=== PATIENT | female | born 1955 | race Caucasian/White ===

== ENCOUNTER → 2016-06-05 | Outpatient (CLI) | payer MEDICARE, OTHER ==
[~2016-06-05] VITALS: Ht 152.4 cm; Wt 129.3 kg
[~2016-06-05] MED LIST: ALBUTEROL2.5 MG/3 M INH; ALL DAY ALLERGY10 MG PO; AMITIZA24 MCG PO; BREO ELLIPTA 11 EACH INH; BUMEX 1MG TABLET1 MG PO; CEFDINIR300 MG PO; CLINDAMYCIN HC300 MG PO; COLACE100 MG PO; DALIRESP500 MCG PO; EPIPEN 2-P0.3 MG/0.3 SC; FEOSOL325 MG PO; HUMALOG100 UNIT/3 SC; IMDUR ER TAB 3030 MG PO; LANTUS SOL100 UNIT/1 SC; LASIX 40 MG TAB40 MG PO; LASIX80 MG PO; LEVEMIR100 UNIT/1 SC; METOLAZONE5 MG PO; MONTELUKAST SOD10 MG PO; NEURONTIN 400400 MG PO; NYSTATIN15 GM TOP; OXYCODONE HCL15 MG PO; POTASSIUM CHLO20 ME1 PO; PRAVASTATIN SOD20 MG PO; PREDNISONE10 MG PO; PROAIR HFA8.5 GM INH; PROTONIX40 MG PO; QUALAQUIN324 MG PO; ROCEPHIN 2 GM AD2 GM IM; SPIRIVA18 MCG INH; TANZEUM30 MG/0.5 SC; TRIAMCINOLONE A60 M1 TOP; VITAMIN B-1000 MCG/M IM; VITAMIN D2000 UNI1 PO; VOLTAREN100 GM TOP
== END ==
LOC: OPSV 14:20
DX: L03.116 Cellulitis of left lower limb (principal); L03.115 Cellulitis of right lower limb
CPT/HCPCS: 96372; J1335

== ENCOUNTER → 2016-06-06 | Outpatient (CLI) | payer MEDICARE, OTHER ==
[~2016-06-06] VITALS: Ht 152.4 cm; Wt 129.3 kg
== END ==
LOC: OPSV 08:59
DX: L03.116 Cellulitis of left lower limb (principal); L03.115 Cellulitis of right lower limb
CPT/HCPCS: 96372; J1335

== ENCOUNTER → 2016-06-07 | Outpatient (CLI) | payer MEDICARE, OTHER | LOC: OPSV 09:06 | DX: L03.116 Cellulitis of left lower limb (principal); L03.115 Cellulitis of right lower limb | CPT/HCPCS: 96372; J1335 ==

== ENCOUNTER → 2016-06-08 | Outpatient (CLI) | payer MEDICARE, OTHER | LOC: OPSV 08:15 | DX: L03.116 Cellulitis of left lower limb (principal); L03.115 Cellulitis of right lower limb | CPT/HCPCS: 96372; J1335 ==

== ENCOUNTER 2016-06-12 14:48 | Inpatient (IN) | payer MEDICARE, OTHER ==
[~2016-06-12] VITALS: Ht 165.1 cm; Wt 128.8 kg
[~2016-06-12 14:48] MED LIST changes: -ALBUTEROL2.5 MG/3 M INH; -ALL DAY ALLERGY10 MG PO; -AMITIZA24 MCG PO; -BREO ELLIPTA 11 EACH INH; -BUMEX 1MG TABLET1 MG PO; -CEFDINIR300 MG PO; -CLINDAMYCIN HC300 MG PO; -COLACE100 MG PO; -DALIRESP500 MCG PO; -EPIPEN 2-P0.3 MG/0.3 SC; -FEOSOL325 MG PO; -HUMALOG100 UNIT/3 SC; -IMDUR ER TAB 3030 MG PO; -LANTUS SOL100 UNIT/1 SC; -LASIX 40 MG TAB40 MG PO; -LASIX80 MG PO; -METOLAZONE5 MG PO; -MONTELUKAST SOD10 MG PO; -NEURONTIN 400400 MG PO; -NYSTATIN15 GM TOP; -OXYCODONE HCL15 MG PO; -POTASSIUM CHLO20 ME1 PO; -PRAVASTATIN SOD20 MG PO; -PREDNISONE10 MG PO; -PROAIR HFA8.5 GM INH; -PROTONIX40 MG PO; -QUALAQUIN324 MG PO; -ROCEPHIN 2 GM AD2 GM IM; -SPIRIVA18 MCG INH; -TANZEUM30 MG/0.5 SC; -TRIAMCINOLONE A60 M1 TOP; -VITAMIN B-1000 MCG/M IM; -VITAMIN D2000 UNI1 PO; -VOLTAREN100 GM TOP
[2016-06-12] MEDS ORDERED: BREO ELLIPTA 11 EACH INH (17:45)
[2016-06-12] MEDS ORDERED: PROAIR HFA8.5 GM INH (17:46)
[2016-06-12] MEDS ORDERED: ALBUTEROL2.5 MG/3 M INH (17:48)
[2016-06-12] MEDS ORDERED: DALIRESP500 MCG PO (17:49)
[2016-06-12] MEDS ORDERED: IMDUR ER TAB 3030 MG PO (17:50)
[2016-06-12] MEDS ORDERED: LASIX 40 MG TAB40 MG PO (17:50)
[2016-06-12] MEDS ORDERED: PRAVASTATIN SOD20 MG PO (17:51)
[2016-06-12] MEDS ORDERED: LANTUS SOL100 UNIT/1 SC (17:54)
[2016-06-12] MEDS ORDERED: TANZEUM30 MG/0.5 SC (17:55)
[2016-06-12] MEDS ORDERED: OXYCODONE HCL15 MG PO (17:56)
[2016-06-12] MEDS ORDERED: VOLTAREN100 GM TOP (17:58)
[2016-06-12] MEDS ORDERED: ALL DAY ALLERGY10 MG PO (17:59)
[2016-06-12] MEDS ORDERED: NEURONTIN 400400 MG PO (17:59)
[2016-06-12] MEDS ORDERED: MONTELUKAST SOD10 MG PO (17:59)
[2016-06-12] MEDS ORDERED: QUALAQUIN324 MG PO (18:00)
[2016-06-12] MEDS ORDERED: PROTONIX40 MG PO (18:01)
[2016-06-12 18:02] LABS: RED BLOOD COUNT 2.59 M/UL (4.00-5.10); WHITE BLOOD COUNT 14.5 K/UL (4.5-11.0)
[2016-06-12] MEDS ORDERED: AMITIZA24 MCG PO (18:02)
[2016-06-12] MEDS ORDERED: TRIAMCINOLONE A60 M1 TOP (18:03)
[2016-06-12] MEDS ORDERED: EPIPEN 2-P0.3 MG/0.3 SC (18:05)
[2016-06-12] MEDS ORDERED: VITAMIN B-1000 MCG/M IM (18:05)
[2016-06-12] MEDS ORDERED: VITAMIN D2000 UNI1 PO (18:06)
[2016-06-12] MEDS ORDERED: FEOSOL325 MG PO (18:07)
[2016-06-14 07:01] LABS: HEMOGLOBIN 10.1 gm/dl (12.3-15.3); RED BLOOD COUNT 3.67 M/UL (4.00-5.10); WHITE BLOOD COUNT 8.5 K/UL (4.5-11.0)
[2016-06-15 05:41] LABS: HEMOGLOBIN 10.1 gm/dl (12.3-15.3); RED BLOOD COUNT 3.61 M/UL (4.00-5.10)
[2016-06-15 05:42] LABS: WHITE BLOOD COUNT 13.8 K/UL (4.5-11.0)
[2016-06-16 05:39] LABS: HEMOGLOBIN 10.4 gm/dl (12.3-15.3); RED BLOOD COUNT 3.78 M/UL (4.00-5.10); WHITE BLOOD COUNT 11.2 K/UL (4.5-11.0)
[2016-06-18 06:25] LABS: HEMOGLOBIN 11.1 gm/dl (12.3-15.3); RED BLOOD COUNT 4.02 M/UL (4.00-5.10); WHITE BLOOD COUNT 9.9 K/UL (4.5-11.0)
[2016-06-18] MEDS ORDERED: COLACE100 MG PO (15:13)
[2016-06-18] MEDS ORDERED: ROCEPHIN 2 GM AD2 GM IM (15:14)
[2016-12-12] MEDS ORDERED: METOLAZONE5 MG PO (01:36)
[2016-12-13] MEDS ORDERED: NEURONTIN 400400 MG PO (11:47)
[2016-12-13] MEDS ORDERED: HUMALOG100 UNIT/3 SC (17:53)
[2016-12-17] MEDS ORDERED: CEFDINIR300 MG PO (10:33)
[2016-12-17] MEDS ORDERED: PREDNISONE10 MG PO (10:52)
== END 2016-06-18 16:19 | disposition home or self-care (01) | DRG 603 ==
LOC: MED SURG 4 14:48
PROVIDERS: Family Medicine; ADMIT Emergency Medicine
DX: L03.115 Cellulitis of right lower limb (principal); J96.11 Chronic respiratory failure with hypoxia; I13.0 Hypertensive heart and chronic kidney disease with heart failure and stage 1 through stage 4 chronic kidney disease, or unspecified chronic kidney disease; N18.4 Chronic kidney disease, stage 4 (severe); I50.32 Chronic diastolic (congestive) heart failure; J44.1 Chronic obstructive pulmonary disease with (acute) exacerbation; L03.116 Cellulitis of left lower limb; E11.65 Type 2 diabetes mellitus with hyperglycemia; E11.22 Type 2 diabetes mellitus with diabetic chronic kidney disease; E11.628 Type 2 diabetes mellitus with other skin complications; E78.5 Hyperlipidemia, unspecified; M54.5 Low back pain; G89.29 Other chronic pain; F41.9 Anxiety disorder, unspecified; K21.9 Gastro-esophageal reflux disease without esophagitis; M51.36 Other intervertebral disc degeneration, lumbar region; M50.30 Other cervical disc degeneration, unspecified cervical region; Z87.891 Personal history of nicotine dependence; Z82.49 Family history of ischemic heart disease and other diseases of the circulatory system; Z83.3 Family history of diabetes mellitus; Z83.6 Family history of other diseases of the respiratory system; Z82.3 Family history of stroke; Z82.61 Family history of arthritis; Z79.899 Other long term (current) drug therapy; Z79.4 Long term (current) use of insulin; Z88.6 Allergy status to analgesic agent; Z88.8 Allergy status to other drugs, medicaments and biological substances; D63.8 Anemia in other chronic diseases classified elsewhere; I87.8 Other specified disorders of veins; D72.829 Elevated white blood cell count, unspecified; E87.6 Hypokalemia
CPT/HCPCS: 36415; 71010; 80048; 80053; 80202; 82272; 82728; 82962; 83540; 83550; 84132; 85025; 85027; 86850; 86900; 86901; 86920; 87040; 93970; 94640; 94664; 96372; J0696; J1335; J1650; J1940; J2920; J2930; J3370; J7050; J7070; P9016

== ENCOUNTER → 2016-06-20 | Outpatient (CLI) | payer MEDICARE, OTHER ==
[~2016-06-20] VITALS: Ht 165.1 cm; Wt 128.8 kg
[~2016-06-20] MED LIST changes: +ALBUTEROL2.5 MG/3 M INH; +ALL DAY ALLERGY10 MG PO; +AMITIZA24 MCG PO; +BREO ELLIPTA 11 EACH INH; +BUMEX 1MG TABLET1 MG PO; +CEFDINIR300 MG PO; +CLINDAMYCIN HC300 MG PO; +COLACE100 MG PO; +DALIRESP500 MCG PO; +EPIPEN 2-P0.3 MG/0.3 SC; +FEOSOL325 MG PO; +HUMALOG100 UNIT/3 SC; +IMDUR ER TAB 3030 MG PO; +LANTUS SOL100 UNIT/1 SC; +LASIX 40 MG TAB40 MG PO; +LASIX80 MG PO; +METOLAZONE5 MG PO; +MONTELUKAST SOD10 MG PO; +NEURONTIN 400400 MG PO; +NYSTATIN15 GM TOP; +OXYCODONE HCL15 MG PO; +POTASSIUM CHLO20 ME1 PO; +PRAVASTATIN SOD20 MG PO; +PREDNISONE10 MG PO; +PROAIR HFA8.5 GM INH; +PROTONIX40 MG PO; +QUALAQUIN324 MG PO; +ROCEPHIN 2 GM AD2 GM IM; +SPIRIVA18 MCG INH; +TANZEUM30 MG/0.5 SC; +TRIAMCINOLONE A60 M1 TOP; +VITAMIN B-1000 MCG/M IM; +VITAMIN D2000 UNI1 PO; +VOLTAREN100 GM TOP
== END ==
LOC: OPSV 14:00
DX: L03.90 Cellulitis, unspecified (principal)
CPT/HCPCS: 96372; J0696

== ENCOUNTER → 2016-06-21 | Outpatient (CLI) | payer MEDICARE, OTHER | LOC: OPSV 07:52 | DX: L03.90 Cellulitis, unspecified (principal) | CPT/HCPCS: 96372; J0696 ==

== ENCOUNTER 2016-06-25 16:43 | Inpatient (IN) | payer MEDICARE, OTHER ==
[~2016-06-25] VITALS: Ht 152.4 cm; Wt 128.5 kg
[~2016-06-25 16:43] MED LIST changes: -BUMEX 1MG TABLET1 MG PO; -CEFDINIR300 MG PO; -CLINDAMYCIN HC300 MG PO; -HUMALOG100 UNIT/3 SC; -LASIX80 MG PO; -METOLAZONE5 MG PO; -NYSTATIN15 GM TOP; -POTASSIUM CHLO20 ME1 PO; -PREDNISONE10 MG PO; -SPIRIVA18 MCG INH
[2016-06-25 19:03] LABS: HEMOGLOBIN 10.7 gm/dl (12.3-15.3); RED BLOOD COUNT 3.9 M/UL (4.00-5.10); WHITE BLOOD COUNT 9.7 K/UL (4.5-11.0)
[2016-06-26 05:41] LABS: HEMOGLOBIN 9.6 gm/dl (12.3-15.3); WHITE BLOOD COUNT 10.6 K/UL (4.5-11.0)
[2016-06-26 05:52] LABS: RED BLOOD COUNT 3.48 M/UL (4.00-5.10)
[2016-06-27 06:21] LABS: HEMOGLOBIN 9.2 gm/dl (12.3-15.3); RED BLOOD COUNT 3.4 M/UL (4.00-5.10); WHITE BLOOD COUNT 9.1 K/UL (4.5-11.0)
[2016-06-28 06:06] LABS: HEMOGLOBIN 9.1 gm/dl (12.3-15.3); RED BLOOD COUNT 3.33 M/UL (4.00-5.10); WHITE BLOOD COUNT 8.9 K/UL (4.5-11.0)
[2016-06-29 06:02] LABS: HEMOGLOBIN 8.3 gm/dl (12.3-15.3); RED BLOOD COUNT 3.04 M/UL (4.00-5.10); WHITE BLOOD COUNT 7.2 K/UL (4.5-11.0)
[2016-06-29 06:32] LABS: BUN/CREATININE RATIO 4 (0-10)
[2016-06-30 04:42] LABS: HEMOGLOBIN 8.5 gm/dl (12.3-15.3); RED BLOOD COUNT 3.13 M/UL (4.00-5.10); WHITE BLOOD COUNT 8.3 K/UL (4.5-11.0)
--- NOTE | 2016-07-01 18:05 | NUR ---
CURRENTLY THE PATIENT IS SITTING UP IN THE CHAIR WITH HER LEGS ELEVATED ON THE OTTOMAN. IV PATENT AND HEP LOCKED. CALL LIGHT WITH IN REACH. WILL CONTINUE TO MONITOR.
[2016-07-02] MEDS ORDERED: CLINDAMYCIN HC300 MG PO (09:59)
[2016-07-02] MEDS ORDERED: BUMEX 1MG TABLET1 MG PO (10:00)
[2016-07-02] MEDS ORDERED: NYSTATIN15 GM TOP (10:06)
[2016-12-12] MEDS ORDERED: METOLAZONE5 MG PO (01:36)
[2016-12-13] MEDS ORDERED: NEURONTIN 400400 MG PO (11:47)
[2016-12-13] MEDS ORDERED: HUMALOG100 UNIT/3 SC (17:53)
[2016-12-17] MEDS ORDERED: CEFDINIR300 MG PO (10:33)
[2016-12-17] MEDS ORDERED: PREDNISONE10 MG PO (10:52)
== END 2016-07-02 17:35 | disposition home or self-care (01) | DRG 602 ==
LOC: MED SURG 4 16:43
PROVIDERS: Family Medicine; Internal Medicine Nephrology; ADMIT Emergency Medicine
DX: L03.116 Cellulitis of left lower limb (principal); J96.21 Acute and chronic respiratory failure with hypoxia; N18.4 Chronic kidney disease, stage 4 (severe); J44.1 Chronic obstructive pulmonary disease with (acute) exacerbation; L03.115 Cellulitis of right lower limb; R60.1 Generalized edema; I12.9 Hypertensive chronic kidney disease with stage 1 through stage 4 chronic kidney disease, or unspecified chronic kidney disease; E11.22 Type 2 diabetes mellitus with diabetic chronic kidney disease; Z87.891 Personal history of nicotine dependence; E78.5 Hyperlipidemia, unspecified; M46.92 Unspecified inflammatory spondylopathy, cervical region; M46.96 Unspecified inflammatory spondylopathy, lumbar region; Z88.6 Allergy status to analgesic agent; Z88.8 Allergy status to other drugs, medicaments and biological substances; I87.8 Other specified disorders of veins; E87.6 Hypokalemia; T50.2X5A Adverse effect of carbonic-anhydrase inhibitors, benzothiadiazides and other diuretics, initial encounter; E83.42 Hypomagnesemia; E11.649 Type 2 diabetes mellitus with hypoglycemia without coma; D63.1 Anemia in chronic kidney disease; Z79.4 Long term (current) use of insulin; Z79.891 Long term (current) use of opiate analgesic; Z79.51 Long term (current) use of inhaled steroids; Z79.899 Other long term (current) drug therapy
CPT/HCPCS: 36415; 36600; 71010; 80048; 80053; 82043; 82550; 82553; 82570; 82728; 82803; 82962; 83540; 83550; 83735; 84484; 85025; 85027; 87081; 93005; 94640; 94660; 94664; 96372; J0696; J1650; J1940; J2405; J7030; Q4081

== ENCOUNTER 2016-08-14 10:10 | Inpatient (IN) | payer MEDICARE, OTHER ==
[~2016-08-14] VITALS: Ht 152.4 cm; Wt 134.9 kg
[~2016-08-14 10:10] MED LIST changes: +BUMEX 1MG TABLET1 MG PO; +CLINDAMYCIN HC300 MG PO; +NYSTATIN15 GM TOP
[2016-08-14 14:05] LABS: HEMOGLOBIN 8.4 gm/dl (12.3-15.3); RED BLOOD COUNT 3.14 M/UL (4.00-5.10)
[2016-08-15 06:01] LABS: HEMOGLOBIN 8.7 gm/dl (12.3-15.3); RED BLOOD COUNT 3.26 M/UL (4.00-5.10); WHITE BLOOD COUNT 8.3 K/UL (4.5-11.0)
[2016-08-15] MEDS ORDERED: SPIRIVA18 MCG INH (17:47)
[2016-08-16 05:53] LABS: HEMOGLOBIN 8.6 gm/dl (12.3-15.3); RED BLOOD COUNT 3.25 M/UL (4.00-5.10); WHITE BLOOD COUNT 8.3 K/UL (4.5-11.0)
[2016-08-18] MEDS ORDERED: LASIX80 MG PO (17:50)
[2016-08-18] MEDS ORDERED: POTASSIUM CHLO20 ME1 PO (17:51)
[2016-12-12] MEDS ORDERED: METOLAZONE5 MG PO (01:36)
[2016-12-13] MEDS ORDERED: NEURONTIN 400400 MG PO (11:47)
[2016-12-13] MEDS ORDERED: HUMALOG100 UNIT/3 SC (17:53)
[2016-12-17] MEDS ORDERED: CEFDINIR300 MG PO (10:33)
[2016-12-17] MEDS ORDERED: PREDNISONE10 MG PO (10:52)
== END 2016-08-18 20:05 | disposition home or self-care (01) | DRG 291 ==
LOC: M/S 10:10
PROVIDERS: ADMIT Emergency Medicine
DX: I13.0 Hypertensive heart and chronic kidney disease with heart failure and stage 1 through stage 4 chronic kidney disease, or unspecified chronic kidney disease (principal); J96.21 Acute and chronic respiratory failure with hypoxia; I50.33 Acute on chronic diastolic (congestive) heart failure; N25.81 Secondary hyperparathyroidism of renal origin; E66.2 Morbid (severe) obesity with alveolar hypoventilation; N18.4 Chronic kidney disease, stage 4 (severe); N17.9 Acute kidney failure, unspecified; E87.3 Alkalosis; Z68.44 Body mass index [BMI] 60.0-69.9, adult; I27.2 Other secondary pulmonary hypertension; D63.1 Anemia in chronic kidney disease; E11.22 Type 2 diabetes mellitus with diabetic chronic kidney disease; G47.30 Sleep apnea, unspecified; I89.0 Lymphedema, not elsewhere classified; E87.6 Hypokalemia; E78.5 Hyperlipidemia, unspecified; D50.9 Iron deficiency anemia, unspecified; Z87.891 Personal history of nicotine dependence; Z91.09 Other allergy status, other than to drugs and biological substances; Z88.5 Allergy status to narcotic agent; Z79.899 Other long term (current) drug therapy; I87.8 Other specified disorders of veins; Z88.6 Allergy status to analgesic agent; Z99.81 Dependence on supplemental oxygen; Z79.4 Long term (current) use of insulin
CPT/HCPCS: ECHO; 36415; 36600; 71010; 80048; 80053; 81001; 82728; 82803; 82962; 83540; 83550; 83735; 84100; 84132; 85027; 87086; 93306; 94640; 94660; 94664; J1650; J1940

== ENCOUNTER → 2016-08-22 | Outpatient (CLI) | payer MEDICARE, OTHER ==
[~2016-08-22] MED LIST changes: +CEFDINIR300 MG PO; +HUMALOG100 UNIT/3 SC; +LASIX80 MG PO; +METOLAZONE5 MG PO; +POTASSIUM CHLO20 ME1 PO; +PREDNISONE10 MG PO; +SPIRIVA18 MCG INH
== END ==
LOC: LAB 10:12
PROVIDERS: Internal Medicine Nephrology
DX: N18.4 Chronic kidney disease, stage 4 (severe) (principal)
CPT/HCPCS: 36415; 80048

== ENCOUNTER → 2020-04-04 | Outpatient (CLI) | payer MEDICARE, OTHER ==
[~2020-04-04] MED LIST changes: +COLCRYS0.6 MG PO; +CYANOCOBAL1000 MCG/1 INJ; +FLEXERIL 10 MG10 MG PO; +FLONASE 0.05% N16 GM; +K-TAB ER20 MEQ PO; +LINZESS145 MCG PO; +LOPRESSOR 50 MG50 MG PO; +METOLAZONE10 MG PO; -METOLAZONE5 MG PO; +ROCALTROL CA0.25 MCG PO; +TRELEGY ELLIPT1 EACH INH; -VITAMIN B-1000 MCG/M IM; +VOLTAREN ARTHRI20 GM TP
[2020-04-04 09:57] LABS: HEMOGLOBIN 10.6 gm/dl (12.3-15.3); RED BLOOD COUNT 3.38 M/UL (4.00-5.10); WHITE BLOOD COUNT 9.6 K/UL (4.5-11.0)
== END ==
LOC: LAB 09:11
PROVIDERS: Internal Medicine Nephrology
DX: N18.5 Chronic kidney disease, stage 5 (principal); E87.6 Hypokalemia; D63.1 Anemia in chronic kidney disease; N25.81 Secondary hyperparathyroidism of renal origin
CPT/HCPCS: 36415; 80053; 82728; 83540; 83550; 83735; 83970; 84100; 85027

== ENCOUNTER → 2020-04-13 | Outpatient (CLI) | payer MEDICARE, OTHER | LOC: LAB 09:57 | PROVIDERS: Internal Medicine Nephrology | DX: N18.5 Chronic kidney disease, stage 5 (principal) | CPT/HCPCS: 36415; 80048 ==

== ENCOUNTER → 2020-06-13 | Outpatient (CLI) | payer MEDICARE, OTHER ==
[2020-06-13 11:51] LABS: HEMOGLOBIN 10.6 gm/dl (12.3-15.3); RED BLOOD COUNT 3.6 M/UL (4.00-5.10); WHITE BLOOD COUNT 8.9 K/UL (4.5-11.0)
[2020-06-14 10:14] LABS: CREATININE, URINE 49.2 mg/dL (Not Estab.)
[2020-06-15 16:11] LABS: CHOLESTEROL, TOTAL 149 mg/dL (100-199); HDL SIZE 8.7 nm (>=9.2); HDL-C 44 mg/dL (>39); HDL-P (TOTAL) 29.4 umol/L (>=30.5); LARGE VLDL-P 2.3 nmol/L (<=2.7); LDL SIZE 20.6 nm (>20.5); LDL SIZE 20.6 nm (>=20.8); LDL-C 79 mg/dL (0-99); LDL-P 964 nmol/L (<1000); LP-IR SCORE 64 (<=45); SMALL LDL-P 493 nmol/L (<=527); TRIGLYCERIDES 148 mg/dL (0-149); VLDL SIZE 48.9 nm (<=46.6)
== END ==
LOC: LAB 09:11
PROVIDERS: Emergency Medicine
DX: E87.6 Hypokalemia (principal); N18.9 Chronic kidney disease, unspecified; N18.5 Chronic kidney disease, stage 5; E21.0 Primary hyperparathyroidism; E11.65 Type 2 diabetes mellitus with hyperglycemia; I10 Essential (primary) hypertension; M10.071 Idiopathic gout, right ankle and foot
CPT/HCPCS: 36415; 80053; 80061; 82043; 82570; 82728; 83036; 83540; 83550; 83704; 83735; 83970; 84100; 84443; 84550; 85025

== ENCOUNTER → 2020-09-19 | Outpatient (CLI) | payer MEDICARE, OTHER ==
[2020-09-19 10:05] LABS: HEMOGLOBIN 10.3 gm/dl (12.3-15.3); RED BLOOD COUNT 3.39 M/UL (4.00-5.10); WHITE BLOOD COUNT 7.3 K/UL (4.5-11.0)
== END ==
LOC: LAB 08:44
PROVIDERS: Internal Medicine Nephrology
DX: N18.5 Chronic kidney disease, stage 5 (principal); N25.81 Secondary hyperparathyroidism of renal origin; D63.1 Anemia in chronic kidney disease
CPT/HCPCS: 36415; 80053; 82728; 83540; 83550; 83970; 84100; 85027

== ENCOUNTER → 2020-10-05 | Outpatient (CLI) | payer MEDICARE, OTHER ==
[~2020-10-05] VITALS: Ht 152.4 cm; Wt 127.0 kg
== END ==
LOC: OPSV 08:45
DX: N18.9 Chronic kidney disease, unspecified (principal); D63.1 Anemia in chronic kidney disease
CPT/HCPCS: 96365; J1439

== ENCOUNTER → 2021-01-04 | Outpatient (CLI) | payer MEDICARE, OTHER ==
[2021-01-04 10:34] LABS: HEMOGLOBIN 10.4 gm/dl (12.3-15.3); RED BLOOD COUNT 3.42 M/UL (4.00-5.10); WHITE BLOOD COUNT 10.7 K/UL (4.5-11.0)
[2021-01-05 07:10] LABS: CREATININE, URINE 64.5 mg/dL (Not Estab.)
[2021-01-06 15:10] LABS: CHOLESTEROL, TOTAL 152 mg/dL (100-199); HDL-C 46 mg/dL (>39); HDL-P (TOTAL) 27.6 umol/L (>=30.5); LARGE HDL-P 5.4 umol/L (>=4.8); LARGE VLDL-P 2.9 nmol/L (<=2.7); LDL SIZE 20.7 nm (>20.5); LDL SIZE 20.7 nm (>=20.8); LDL-C 82 mg/dL (0-99); LDL-P 1391 nmol/L (<1000); LP-IR SCORE 57 (<=45); SMALL LDL-P 798 nmol/L (<=527); TRIGLYCERIDES 134 mg/dL (0-149)
== END ==
LOC: LAB 09:41
PROVIDERS: Emergency Medicine
DX: E11.65 Type 2 diabetes mellitus with hyperglycemia (principal); J44.9 Chronic obstructive pulmonary disease, unspecified; R53.83 Other fatigue; I12.9 Hypertensive chronic kidney disease with stage 1 through stage 4 chronic kidney disease, or unspecified chronic kidney disease; E11.22 Type 2 diabetes mellitus with diabetic chronic kidney disease; N18.4 Chronic kidney disease, stage 4 (severe)
CPT/HCPCS: 36415; 80053; 80061; 82043; 82306; 82570; 83036; 83704; 84443; 84550; 85025

== ENCOUNTER → 2021-01-16 | Outpatient (CLI) | payer MEDICARE, OTHER | LOC: RAD 12:51 | DX: M79.672 Pain in left foot (principal); M79.671 Pain in right foot | CPT/HCPCS: 73630 ==

== ENCOUNTER → 2021-02-01 | Outpatient (CLI) | payer MEDICARE, OTHER ==
[2021-02-01 11:47] LABS: HEMOGLOBIN 9.3 gm/dl (12.3-15.3); RED BLOOD COUNT 3.1 M/UL (4.00-5.10); WHITE BLOOD COUNT 7.9 K/UL (4.5-11.0)
== END ==
LOC: LAB 10:40
PROVIDERS: Internal Medicine Nephrology
DX: Z02.89 Encounter for other administrative examinations (principal); N18.5 Chronic kidney disease, stage 5; N25.81 Secondary hyperparathyroidism of renal origin
CPT/HCPCS: 36415; 80053; 82728; 83540; 83550; 83970; 84100; 85027

== ENCOUNTER → 2021-03-07 | Outpatient (CLI) | payer MEDICARE, OTHER ==
[2021-03-07 11:08] LABS: HEMOGLOBIN 9.8 gm/dl (12.3-15.3); RED BLOOD COUNT 3.28 M/UL (4.00-5.10); WHITE BLOOD COUNT 10.2 K/UL (4.5-11.0)
[2021-03-08 08:13] LABS: A/G RATIO 1.2 (1.2-2.2); BILIRUBIN, TOTAL 0.4 mg/dL (0.0-1.2); CALCIUM, SERUM 9.7 mg/dL (8.7-10.3); CREATININE, SERUM 3.5 mg/dL (0.57-1.00); GLOBULIN, TOTAL 3.2 g/dL (1.5-4.5); POTASSIUM, SERUM 4.2 mmol/L (3.5-5.2)
== END ==
LOC: LAB 10:16
PROVIDERS: Internal Medicine Nephrology
DX: N18.5 Chronic kidney disease, stage 5 (principal); N25.81 Secondary hyperparathyroidism of renal origin
CPT/HCPCS: 36415; 80053; 82728; 83540; 83550; 84100; 85027

== ENCOUNTER → 2021-04-10 | Outpatient (CLI) | payer MEDICARE, OTHER | LOC: LAB 08:43 | PROVIDERS: Emergency Medicine | DX: E11.65 Type 2 diabetes mellitus with hyperglycemia (principal); E11.22 Type 2 diabetes mellitus with diabetic chronic kidney disease; I12.9 Hypertensive chronic kidney disease with stage 1 through stage 4 chronic kidney disease, or unspecified chronic kidney disease; N18.4 Chronic kidney disease, stage 4 (severe); R53.83 Other fatigue; R09.02 Hypoxemia | CPT/HCPCS: 36415; 80053; 83036; 84550 ==

== ENCOUNTER → 2021-05-17 | Outpatient (CLI) | payer MEDICARE, OTHER ==
[2021-05-17 10:17] LABS: HEMOGLOBIN 9.7 gm/dl (12.3-15.3); RED BLOOD COUNT 3.31 M/UL (4.00-5.10); WHITE BLOOD COUNT 8.7 K/UL (4.5-11.0)
== END ==
LOC: LAB 09:19
PROVIDERS: Internal Medicine Nephrology
DX: N18.5 Chronic kidney disease, stage 5 (principal); D63.1 Anemia in chronic kidney disease; N25.81 Secondary hyperparathyroidism of renal origin
CPT/HCPCS: 36415; 80053; 82728; 83540; 83550; 83970; 84100; 85027

== ENCOUNTER → 2021-05-30 | Outpatient (CLI) | payer MEDICARE, OTHER ==
[~2021-05-30] VITALS: Ht 152.4 cm; Wt 127.0 kg
== END ==
LOC: OPSV 11:00
DX: N18.9 Chronic kidney disease, unspecified (principal); D63.1 Anemia in chronic kidney disease
CPT/HCPCS: 96365; 96366; J1756; J7030

== ENCOUNTER → 2021-10-16 | Outpatient (CLI) | payer MEDICARE, OTHER | LOC: LAB 08:56 | PROVIDERS: Internal Medicine | DX: Z02.89 Encounter for other administrative examinations (principal) | CPT/HCPCS: 36415; 80307 ==